=== PATIENT | male | born 1980 | race Two or more races ===

== ENCOUNTER 2023-02-15 09:46 | Emergency (ER) | payer BC ==
[~2023-02-15] VITALS: Ht 182.9 cm; Wt 109.0 kg
[2023-02-15 10:00] VITALS: BP 148/90; PULSE 108; RESP 16; TEMP 98.8; O2SAT 99
[2023-02-15 11:35] LABS: CLARITY URINE CLEAR (CLEAR); COLOR URINE YELLOW (YELLOW); GLUCOSE URINE NEGATIVE (NEGATIVE); KETONES URINE NEGATIVE (NEGATIVE); LEUKOCYTE ESTERASE URINE NEGATIVE (NEGATIVE); NITRITE URINE NEGATIVE (NEGATIVE); OCCULT BLOOD URINE NEGATIVE (NEGATIVE); PH URINE 5.5 (4.5-8.0); PROTEIN URINE NEGATIVE (NEGATIVE); UROBILINOGEN URINE 0.2 E.U./dL (0.2-1.0)
== END 2023-02-15 13:07 | disposition home or self-care (01) ==
LOC: ER 09:46
DX: R10.9 Unspecified abdominal pain (principal); R16.0 Hepatomegaly, not elsewhere classified; I25.10 Atherosclerotic heart disease of native coronary artery without angina pectoris; M47.9 Spondylosis, unspecified
CPT/HCPCS: 71250; 74176; 81003; 99284